=== PATIENT | male | born 1960 | race Caucasian/White ===

== ENCOUNTER 2018-06-18 08:36 | Emergency (ER) | payer BC ==
[2018-06-18] MEDS ORDERED: Proparacaine 0.5% Opth 15 ML BOT ONE (09:46)
== END 2018-06-18 10:49 | disposition home or self-care (01) ==
LOC: ERS 08:36
DX: T15.01XA Foreign body in cornea, right eye, initial encounter (principal); Z79.899 Other long term (current) drug therapy
CPT/HCPCS: 99283